=== PATIENT | female | born 1945 | race Hispanic/Latino ===

== ENCOUNTER 2016-10-11 06:30 | Outpatient (CLI) | payer MEDICARE ==
--- NOTE | 2016-10-11 13:17 | PET Report ---
PET/CT:10/11/16 06:30:00 CLINICAL: Malignant neoplasm of upper lobe, right bronchus or lung. Status post left upper lobectomy for lung cancer. RADIOPHARMACEUTICAL: 15.343mCi F18-FDG. COMPARISON: CT chest 09/04/16 and PET/CT 01/03/16, 10/12/15, 08/10/14 and 12/17/13. TECHNIQUE- Following intravenous injection of F-18 FDG and an approximately 60 minute uptake period, CT and PET images from the mid skull to the upper thighs were acquired with the patient in the fasted state. No contrast was administered. The CT protocol used for this PET CT study is designed for attenuation correction and anatomic localization of PET abnormalities. This brand coordinator CT is not desired to produce and cannot replace, zwosd-ru-vll-art diagnostic CT scans with specific imaging protocols for different body parts and indications. Plasma glucose at the time of this test: 116g/dl. The standardized uptake values (SUV) are normalized to patient body weight and indicate the highest activity concentration (SUV max) in a given disease site. FINDINGS: Brain--Physiologic FDG uptake in the visualized regions of the brain. Neck--Physiologic FDG uptake . Chest--Physiologic FDG uptake in mediastinal blood pool and myocardium. Lungs--FDG avid right upper lobe irregular patchy lung opacities have become more confluent with increased density compared to the recent CT. The most intense FDG uptake is in an irregular anterior segment right upper lobe opacity measuring 3.6 x 3.4 cm with SUV 6.9. Extends to the pleura. A more lateral and posterior lung opacity with SUV 5.8 is also contiguous to the pleura. Reticular interstitial opacities of the right upper lobe are not FDG avid. The rest of the right lung is normal. Status post left upper lobectomy with no left lower lobe mass. Pleura/pericardium--Thickened pleura in the left hemithorax is FDG avid with SUV 7.1. No pleural effusion. Thoracic nodes--No abnormal uptake. Hepatobiliary--No abnormal uptake. Liver background SUV mean, as a reference for comparing FDG studies, is 3.4 compared to 3.6 on the last exam. No liver mass. Spleen--No abnormal uptake. Pancreas--No abnormal uptake. Adrenal Glands--No abnormal uptake. Stable hypodense left adrenal mass measuring 3.1 x 2.7 cm with FDG uptake equal to background. Kidneys/Ureters/Bladder--No abnormal uptake. Abdominopelvic Nodes--No abnormal uptake. Bowel/Peritoneum/Mesentery--Physiologic FDG activity in the colon. No abnormal uptake. Pelvic organs--No abnormal uptake. Bones/Soft Tissues--No abnormal uptake. No suspicious bone lesions. IMPRESSION- 1. Extensive FDG avid right upper lobe lung opacities are suspicious for metastatic tumor. 2. Status post left upper lobectomy with probably benign FDG uptake in the left pleura. 3. No evidence of julisa, hepatic or skeletal metastasis. 4. Stable benign left adrenal adenoma.
== END 2016-10-11 06:31 | disposition home or self-care (01) ==
LOC: PET 06:30
PROVIDERS: ATTEND Internal Medicine Hematology
DX: C34.11 Malignant neoplasm of upper lobe, right bronchus or lung (principal); D35.02 Benign neoplasm of left adrenal gland; Z90.89 Acquired absence of other organs; J44.9 Chronic obstructive pulmonary disease, unspecified; J18.9 Pneumonia, unspecified organism; D64.9 Anemia, unspecified; Z72.0 Tobacco use
CPT/HCPCS: 78815; 82962; A9552

== ENCOUNTER 2016-10-25 08:36 | Day surgery (SDC) | payer MEDICARE ==
[2016-10-25 10:43] LABS: Basophils % (Auto) 0.8 % (0.0-1.8); Hematocrit 35.4 % (30.3-42.9); Hemoglobin 11.1 gm/dl (10.1-14.3); Mean Corpuscular HGB Conc 31 % (30-34); Mean Corpuscular Volume 80 fl (79-97); Platelet Count 532 K/mm3 (140-440); Red Blood Count 4.42 M/mm3 (3.65-5.03); Red Cell Distribution Width 17.2 % (13.2-15.2); White Blood Count 14.3 K/mm3 (4.5-11.0)
[2016-10-25 10:51] LABS: Mean Corpuscular Hemoglobin 25 pg (28-32)
[2016-10-25 10:54] LABS: INR 0.98 (0.87-1.13)
[2016-10-25 10:55] LABS: Partial Thromboplastin Time 27.9 Sec. (24.2-36.6)
[2016-10-25] MEDS ORDERED: VERSED IV ONE ×2 (11:25→12:00)
[2016-10-25] MEDS ORDERED: SUBLIMAZE ONE (11:25)
[2016-10-25] MEDS ORDERED: SUBLIMAZE IV ONE ×2 (12:00→12:43)
[2016-10-25] MEDS ORDERED: VERSED IV NR (13:00)
--- NOTE | 2016-10-25 13:29 | Short Stay Summary ---
Short Stay Documentation Date of service: 10/25/16 - History Principal diagnosis: Lung Ca Past Medical History: cancer - Allergies and Medications Current Medications: Allergies No Known Allergies Allergy (Verified 07/27/14 07:24) Home Medications Medication Instructions Recorded Confirmed Last Taken Type Fluticasone/Salmeterol [Advair 1 puff INHALATION BID 07/27/14 10/25/16 10/24/16 History Diskus 250-50 mcg] Bupropion HCl [Wellbutrin XL] 300 mg PO QDAY 10/25/16 10/25/16 10/24/16 History Active Medications Midazolam HCl (Versed) 5 mg IV ONCE NR Stop: 10/25/16 23:59 Last Admin: 10/25/16 12:15 Dose: 5 mg - Physical exam General appearance: no acute distress - Brief post op/procedure progress note Date of procedure: 10/25/16 Pre-op diagnosis: Lung masses Post-op diagnosis: same Procedure: Lung bx Anesthesia: local Surgeon: MELANY GABRIEL Estimated blood loss: none Specimen disposition: to lab Condition: stable - Disposition Condition at discharge: Good Disposition: [id number] TO HOME OR SELFCARE
--- NOTE | 2016-10-25 14:33 | XRay Report ---
AP extra chest x-ray. History: Status post right lung biopsy. Findings: There is no evidence of pneumothorax status post biopsy of right lung mass. Numerous ill-defined opacities are seen in the upper lobe. A left pneumonectomy has been performed. These findings are stable. Impression: No complications of lung biopsy.
--- NOTE | 2016-10-25 14:35 | Cat Scan Report ---
CT guided biopsy of right upper lobe mass. Procedure: The patient's skin surface overlying the right lateral thorax was prepped and draped using sterile technique. Local anesthetic was injected into the skin. Using CT guidance, a 19-gauge sheath needle was advanced into the right upper lobe opacity. 4 passes were made using a 20-gauge biopsy gun. Adequate tissue cores were obtained and initial touch prep slides were positive for malignant cells. Intravenous conscious sedation was used. Independent cardiorespiratory monitoring was performed by the outpatient procedure nurse, supervised by me for 30 minutes Intraservice time. The patient tolerated the procedure well clinically. Postbiopsy images demonstrate no evidence of pneumothorax or significant hemorrhage. The patient was sent to the outpatient procedure unit for further observation in satisfactory condition.
[2016-10-25 14:52] VITALS: BP 112/57
== END 2016-10-25 08:37 | disposition home or self-care (01) ==
LOC: OPU 08:36
PROVIDERS: ATTEND Internal Medicine Hematology
DX: R91.8 Other nonspecific abnormal finding of lung field (principal)
CPT/HCPCS: 32405; 36415; 77012; 85025; 85610; 85730; 88173; 88305; 88333; J2250; J3010

== ENCOUNTER 2016-12-25 07:52 | Outpatient (CLI) | payer MEDICARE ==
--- NOTE | 2016-12-25 16:11 | Cat Scan Report ---
CT CHEST, ABDOMEN AND PELVIS WITH CONTRAST: 12/25/16 07:52:00 CLINICAL: Recently diagnosed and treated right lung cancer and more remote history of a left upper lobe lung cancer. COMPARISON: 10/11/[address] Chest 09/04/16 TECHNIQUE: Volumetric acquisition and 1.25 millimeter scan reconstructions after the uneventful intravenous injection of 100 cc of Omnipaque 300. Consent was obtained prior to the administration of the contrast. Oral contrast was also given. FINDINGS: Chest: An irregular peripheral right upper lobe lung opacity persists at the 10/25/16 CT biopsy site and measures 1.5 x 0.7 cm compared to 3.3 x 2.0 cm at the time of the biopsy. Near-complete resolution of previously described patchy right upper lobe lung opacities. A 7 mm nodular opacity persists on image 64, series #2. Irregular linear opacities persist in the anterior right upper lobe at the site of previous FDG avid opacities. Status post left pneumonectomy with a stable pneumonectomy cavity with thickened pleura. The heart is shifted to the left. Small left pericardial effusion. Normal aorta and right pulmonary arteries. No mediastinal or hilar lymphadenopathy.No axillary or supraclavicular lymphadenopathy. Normal thyroid and esophagus. Abdomen: Normal liver, bile ducts and gallbladder. No liver mass. Normal stomach, duodenum, pancreas and spleen. Stable bilateral adrenal adenomas. The left measures 2.9 x 2.7 cm and the right measures 1.2 x 0.9 cm. Small left renal cysts in otherwise normal kidneys. The renal collection systems and ureters are nondilated. Calcification and mild tortuosity of the aorta and iliac arteries. The inferior vena cava is normal. No abdominal lymphadenopathy.No ascites.Normal small bowel. Normal ascending, transverse and descending colon. An appendix is not identified. Pelvis: Normal urinary bladder and rectum. Absence of the uterus a normal vaginal cuff. The sigmoid colon is redundant with a few diverticula. No signs of diverticulitis . Bone windows demonstrate no suspicious bone lesion. IMPRESSION: 1. Near-complete resolution of right upper lobe lung masses. 2. No evidence of julisa, hepatic, adrenal or skeletal metastasis. 3. Stable bilateral adrenal adenomas.
== END 2016-12-25 07:53 | disposition home or self-care (01) ==
LOC: SPVIMAG 07:52
PROVIDERS: ATTEND Internal Medicine Hematology
DX: C34.11 Malignant neoplasm of upper lobe, right bronchus or lung (principal); D35.02 Benign neoplasm of left adrenal gland; D35.01 Benign neoplasm of right adrenal gland; I31.3 Pericardial effusion (noninflammatory); N28.1 Cyst of kidney, acquired; I70.0 Atherosclerosis of aorta; K57.30 Diverticulosis of large intestine without perforation or abscess without bleeding; Z90.710 Acquired absence of both cervix and uterus; Z87.891 Personal history of nicotine dependence; Z85.118 Personal history of other malignant neoplasm of bronchus and lung; Z90.2 Acquired absence of lung [part of]
CPT/HCPCS: 71260; 74177; Q9967

== ENCOUNTER 2017-03-28 13:43 | Outpatient (CLI) | payer MEDICARE ==
--- NOTE | 2017-04-01 09:29 | PET Report ---
PET SB TO MT SUBSEQUENT: HISTORY: Restaging of lung cancer. TECHNIQUE: 13.4 millicuries F-18 FDG was administered intravenously. Noncontrast CT images and PET images were obtained from the skull base to the proximal thighs. Fused images were reviewed on a workstation. The patient's blood glucose level measured 92. COMPARISON: 10/11/16. FINDINGS: BRAIN: physiologic FDG uptake in the imaged brain. NECK: physiologic FDG uptake. MEDIASTINUM: physiologic FDG uptake. LUNGS: The previously described near confluent densities throughout the right upper lobe have essentially resolved since 10/11/16. Minimal focal air space densities remain in the right upper lobe. No discrete mass is appreciated. Max SUV in the right upper lobe has decreased from 6.9 to 3.8 on today's exam. There are underlying emphysematous changes in the right lung but no new mass. Left pneumonectomy changes with possible bronchopulmonary fistula to the left upper lobe is unchanged. There is diffuse left pleural thickening which is unchanged. A max SUV throughout the left pleura has increased from 10.0 to 10.6. PLEURA/PERICARDIUM: physiologic FDG uptake. THORACIC LYMPH NODES: physiologic FDG uptake. HEPATOBILIARY: physiologic FDG uptake. Mean liver SUV measures 4.0 as opposed to 3.7 on the previous exam. PANCREAS: physiologic FDG uptake. SPLEEN: physiologic FDG uptake. ADRENAL GLANDS: Bilateral adrenal adenomas are stable in size and metabolic activity. KIDNEYS/RENAL COLLECTING SYSTEMS: physiologic FDG uptake. BOWEL/MESENTERY: physiologic FDG uptake. PELVIC VISCERA: physiologic FDG uptake. ABDOMINAL/PELVIC LYMPH NODES: physiologic FDG uptake. MUSCULOSKELETAL: physiologic FDG uptake. IMPRESSION: A positive response to therapy is demonstrated since 10/11/16. The previously described ill defined densities throughout the right upper lobe have nearly resolved with decreased hypermetabolic activity as outlined above. Left pneumonectomy changes with diffuse left pleural thickening and moderate hypermetabolic activity appears relatively stable. No new areas of disease are appreciated on today's exam.
== END 2017-03-28 13:44 | disposition home or self-care (01) ==
LOC: PET 13:43
PROVIDERS: ATTEND Internal Medicine Hematology
DX: C34.11 Malignant neoplasm of upper lobe, right bronchus or lung (principal); D35.02 Benign neoplasm of left adrenal gland; D35.01 Benign neoplasm of right adrenal gland; J86.0 Pyothorax with fistula; Z90.2 Acquired absence of lung [part of]; Z79.899 Other long term (current) drug therapy
CPT/HCPCS: 78815; 82962; A9552

== ENCOUNTER 2017-07-04 08:34 | Outpatient (CLI) | payer MEDICARE ==
--- NOTE | 2017-07-09 08:09 | PET Report ---
PET SB TO MT SUBSEQUENT: HISTORY: Lung cancer. TECHNIQUE: 13.3 millicuries F-18 FDG was administered intravenously. Noncontrast CT images and PET images were obtained from the skull base to the proximal thighs. Fused images were reviewed on a workstation. The patient's blood glucose level measured 98. COMPARISON: 03/28/17. FINDINGS: BRAIN: physiologic FDG uptake in the imaged brain. NECK: physiologic FDG uptake. MEDIASTINUM: physiologic FDG uptake. LUNGS: Stable left pneumonectomy changes. Diffuse left pleural thickening without discrete mass is stable. Left pleural uptake has decreased from a max SUV of 10.6 to 7.1. The right lung is generally clear. The previously described peribronchial densities in the right upper lobe have resolved. No new right lung mass or nodule. PERICARDIUM: physiologic FDG uptake. THORACIC LYMPH NODES: physiologic FDG uptake. HEPATOBILIARY: physiologic FDG uptake. Mean liver SUV measures 3.5 as opposed to 4.1 on the previous exam. PANCREAS: physiologic FDG uptake. SPLEEN: physiologic FDG uptake. ADRENAL GLANDS: physiologic FDG uptake. Bilateral low-density adrenal nodules are unchanged and most consistent with an adrenal adenomas. KIDNEYS/RENAL COLLECTING SYSTEMS: physiologic FDG uptake. BOWEL/MESENTERY: physiologic FDG uptake. PELVIC VISCERA: physiologic FDG uptake. Hysterectomy. ABDOMINAL/PELVIC LYMPH NODES: physiologic FDG uptake. MUSCULOSKELETAL: physiologic FDG uptake. IMPRESSION: Relatively stable findings since 03/28/17 exam. Left pleural uptake has decreased with SUV decreasing from 10.6 to 7.1. Focal opacities in the right upper lobe have resolved which probably represented an inflammatory process. No new areas of disease are appreciated on today's exam.
== END 2017-07-04 08:35 | disposition home or self-care (01) ==
LOC: PET 08:34
PROVIDERS: ATTEND Internal Medicine Hematology & Oncology
DX: C34.11 Malignant neoplasm of upper lobe, right bronchus or lung (principal); J44.9 Chronic obstructive pulmonary disease, unspecified; D64.9 Anemia, unspecified; Z87.891 Personal history of nicotine dependence; Z90.2 Acquired absence of lung [part of]; Z90.710 Acquired absence of both cervix and uterus
CPT/HCPCS: 78815; 82962; A9552

== ENCOUNTER 2017-11-21 11:14 | Outpatient (CLI) | payer MEDICARE ==
--- NOTE | 2017-11-22 09:24 | PET Report ---
PET/CT:11/21/17 11:14:00 CLINICAL: Left lung cancer restaging. RADIOPHARMACEUTICAL: 14.13mCi F18-FDG. COMPARISON: 07/04/17 PET/CT TECHNIQUE- Following intravenous injection of F-18 FDG and an approximately 60 minute uptake period, CT and PET images from the mid skull to the upper thighs were acquired with the patient in the fasted state. No contrast was administered. The CT protocol used for this PET CT study is designed for attenuation correction and anatomic localization of PET abnormalities. This electrical installer CT is not desired to produce and cannot replace, fefok-nn-odm-art diagnostic CT scans with specific imaging protocols for different body parts and indications. Plasma glucose at the time of this test: 98g/dl. The standardized uptake values (SUV) are normalized to patient body weight and indicate the highest activity concentration (SUV max) in a given disease site. FINDINGS: Brain--Physiologic FDG uptake in the visualized regions of the brain. Neck--Physiologic FDG uptake in mucosal structures. No mass or lymphadenopathy. Chest--Physiologic FDG uptake in mediastinal blood pool and myocardium. Lungs/Pleura/pericardium--Stable left pneumonectomy changes with diffuse pleural thickening. Increased FDG uptake in the pleura compared to the last exam. The SUV is 12.0 compared to 10.6. No abnormal pulmonary uptake. Thoracic nodes--No abnormal uptake. Hepatobiliary--No abnormal uptake. Liver background SUV mean, as a reference for comparing FDG studies, is 2.6 compared to 3.1 on the last exam. No liver mass. Spleen--No abnormal uptake. Pancreas--No abnormal uptake. Adrenal Glands--No abnormal uptake. Stable 3 cm water density left adrenal mass consistent with a benign adenoma. A previously described right adrenal adenoma is not identified. Kidneys/Ureters/Bladder--No abnormal uptake. Abdominopelvic Nodes--No abnormal uptake. Bowel/Peritoneum/Mesentery--No abnormal uptake. Pelvic organs--No abnormal uptake. Bones/Soft Tissues--No abnormal uptake. No suspicious bone lesions. IMPRESSION- 1. Stable disease except for slight increased FDG uptake in the thickened pleura of the left pneumonectomy space which is of uncertain clinical significance. 2. Stable benign 3 cm left adrenal adenoma.
== END 2017-11-21 11:15 | disposition home or self-care (01) ==
LOC: PET 11:14
PROVIDERS: ATTEND Internal Medicine Hematology
DX: C34.11 Malignant neoplasm of upper lobe, right bronchus or lung (principal); D35.02 Benign neoplasm of left adrenal gland; J44.9 Chronic obstructive pulmonary disease, unspecified; Z87.891 Personal history of nicotine dependence; Z90.710 Acquired absence of both cervix and uterus; D64.9 Anemia, unspecified
CPT/HCPCS: 78815; 82962; A9552

== ENCOUNTER 2018-09-18 10:40 | Outpatient (CLI) | payer MEDICARE ==
--- NOTE | 2018-09-22 10:12 | PET Report ---
PET/CT:09/18/18 10:40:00 CLINICAL: Left lung cancer restaging RADIOPHARMACEUTICAL: 13.62mCi F18-FDG. COMPARISON: 03/20/18 PET/CT TECHNIQUE- Following intravenous injection of F-18 FDG and an approximately 60 minute uptake period, CT and PET images from the mid skull to the upper thighs were acquired with the patient in the fasted state. No contrast was administered. The CT protocol used for this PET CT study is designed for attenuation correction and anatomic localization of PET abnormalities. This supervisor corduroy cutting CT is not desired to produce and cannot replace, bwiga-pm-zjw-art diagnostic CT scans with specific imaging protocols for different body parts and indications. Plasma glucose at the time of this test: 94g/dl. The standardized uptake values (SUV) are normalized to patient body weight and indicate the highest activity concentration (SUV max) in a given disease site. FINDINGS: Brain--Physiologic FDG uptake in the visualized regions of the brain. Neck--Physiologic FDG uptake the mucosal structures. No mass or lymphadenopathy. Chest--Physiologic FDG uptake in mediastinal blood pool and myocardium. Lungs--No abnormal uptake. No pulmonary nodule or mass. The previously described non-FDG avid right apical nodular lung opacity is not identified on this exam. Pleura/pericardium--Stable FDG uptake in the left chest at the margin of the pneumonectomy space. SUV is 10.4 compared to 9.4 on the last exam. Thoracic nodes--No abnormal uptake. Hepatobiliary--No abnormal uptake. Liver background SUV mean, as a reference for comparing FDG studies, is 4.1 compared to 3.6 on the last exam. No liver mass. Spleen--No abnormal uptake. Pancreas--No abnormal uptake. Adrenal Glands--No abnormal uptake. Kidneys/Ureters/Bladder--No abnormal uptake. Abdominopelvic Nodes--No abnormal uptake. Bowel/Peritoneum/Mesentery--No abnormal uptake. Pelvic organs--No abnormal uptake. Bones/Soft Tissues--No abnormal uptake. no suspicious bone lesion. IMPRESSION- Negative study with no evidence of disease recurrence or metastasis .
== END 2018-09-18 10:41 | disposition home or self-care (01) ==
LOC: PET 10:40
PROVIDERS: ATTEND Internal Medicine Hematology
DX: C34.11 Malignant neoplasm of upper lobe, right bronchus or lung (principal); J44.9 Chronic obstructive pulmonary disease, unspecified; Z90.89 Acquired absence of other organs; Z90.710 Acquired absence of both cervix and uterus
CPT/HCPCS: 78815; 82962; A9552

== ENCOUNTER 2019-06-05 09:57 | Outpatient (CLI) | payer MEDICARE ==
[2019-06-05 10:53] LABS: Blood Urea Nitrogen 15 mg/dL (7-17)
--- NOTE | 2019-06-05 13:23 | Cat Scan Report ---
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 TECHNIQUE: 100 cc of Omnipaque [address] was [address]. Helical CT images through the [facility] st abdomen and pelvis with sagittal and coronal reformatted images.. All CT scans at this location a re performed using CT dose reduction for ALARA by means of automated exposure control. COMPARISON: PET/CT dated 09/18/2018 FINDINGS: CHEST: Stable left pneumonectomy changes. The right lung is generally clear. No suspicious nodule, i nfiltrate or effusion. Minor linear atelectasis or scarring is noted in the right lower lobe. Heart s ize is within normal limits. Small pericardial effusion along the left heart border is unchanged. The thyroid gland tracheobronchial tree and esophagus are unremarkable. No mediastinal adenopathy. No padilla spicious bony lesion is appreciated. Left thoracotomy changes are again noted. ABDOMEN/PELVIS: Normal liver, biliary system, pancreas, spleen and kidneys. 2.7 cm left adrenal mass and 1 cm right adrenal mass are unchanged in size and contour. These appear to represent bilateral a denomas. The bowel loops are normal caliber and wall thickness. The appendix is not identified. No bowel obstr uction or focal inflammation. Stable hysterectomy changes. No adnexal abnormality. The bladder and distal ureters are unremarkable. Mild diffuse aortic calcifications are stable. No evidence for ascites, free air, adenopathy or suspi cious bony lesion. IMPRESSION: Stable findings since PET/CT dated 09/18/2018. No evidence for disease recurrence or metas tasis. Signer Name: Arjun Farris Jr, MD Signed: 06/05/2019 1:19 PM Workstation Name: [id number]
== END 2019-06-05 09:58 | disposition home or self-care (01) ==
LOC: CT 09:57
PROVIDERS: ATTEND Internal Medicine Hematology
DX: I31.3 Pericardial effusion (noninflammatory) (principal); N28.89 Other specified disorders of kidney and ureter; C34.11 Malignant neoplasm of upper lobe, right bronchus or lung; Z90.710 Acquired absence of both cervix and uterus
CPT/HCPCS: 36415; 71260; 74177; 82565; 84520; Q9967

== ENCOUNTER 2020-03-03 09:22 | Outpatient (CLI) | payer MEDICARE ==
--- NOTE | 2020-03-08 15:22 | PET Report ---
PET-CT SCAN INDICATION / CLINICAL INFORMATION: C34.11. STAGING: Re-staging TECHNIQUE: Tumor imaging, positron emission tomography (PET) with concurrently acquired computed tomography (CT) for attenuation correction and anatomical localization; Skull Base to Mid Thigh - DOSE: 15.45 mCi F-18 FDG was administered IV per protocol - GLUCOSE: Patient's blood glucose at that time was (mg/dL): 143 - UPTAKE TIME: PET scan performed approximately 60 minutes after radiotracer administration. - CT SCAN DESCRIPTION: No oral or IV contrast. All CT scans at this location are performed using CT d ose reduction for ALARA by means of automated exposure control. COMPARISON: PET CT scan dated 09/18/[address] scan dated 11/30/2019 FINDINGS: HEAD / NECK: There is focal uptake in the skull base on the right which measures 8 SUV. There is abno rmal uptake in the left mandible which measures 9.8 SUV. There is focal uptake in the right lateral mass of C1 and 5.9 SUV.. There is multifocal uptake throug hout the cervical spine. Uptake in C2 measures 9.9 SUV. There is a right supraclavicular node which m easures approximately 11 mm and 7.7 SUV. CHEST: There is hypermetabolic adenopathy in the mediastinum and right hilum. Right paratracheal node measures 7.1 SUV. Right hilar node measures 9.6 SUV. Changes of left pneumonectomy are noted. There is scarring noted in the right upper lobe and right lower lobe. Atherosclerotic calcifications are ABDOMEN / PELVIS: There is a hypermetabolic lesion in the right lobe of the liver which measures 5.7 SUV. There is a small hypermetabolic focus in left adrenal nodule which measures 5.2 SUV. The left ad renal nodule measures 2.9 cm and is unchanged in size from the prior PET/CT scan. The focal activity within it is new. LOWER EXTREMITIES: No abnormal radiotracer uptake in the visualized lower extremities. No significant CT abnormality. SKELETAL STRUCTURES: There is extensive osseous metastatic disease with multiple areas of uptake thro ughout the spine, the iliac bones, multiple rib lesions. Index lesion in right L4 transverse process has a soft tissue component which is osseous destruction measures 13.8 SUV. There is extensive uptake in the left iliac bone which measures 13.8 SUV. ADDITIONAL FINDINGS: No additional significant findings. IMPRESSION: 1. There is extensive osseous metastatic disease. There are lytic lesions noted in the posterior left iliac bone, the right T8 L4 transverse process. And several within the vertebral bodies. There is metastatic disease in the liver. There is hypermetabolic adenopathy in the mediastinum. Ther e are new hypermetabolic foci within the left adrenal gland. Signer Name: Bruce Abdi MD Signed: 03/08/2020 10:29 AM Workstation Name: [id number]
== END 2020-03-03 09:23 | disposition home or self-care (01) ==
LOC: PET 09:22
PROVIDERS: ATTEND Internal Medicine Hematology
DX: C34.11 Malignant neoplasm of upper lobe, right bronchus or lung (principal)
CPT/HCPCS: 78815; 82962; A9552